=== PATIENT | male | born 1990 | race African-American/Black ===

== ENCOUNTER 2022-06-01 04:02 | Emergency (ER) | payer OTHER, SELFPAY ==
[2022-06-01 04:20] VITALS: BP 148/59; PULSE 72; RESP 16; TEMP 36.3; O2SAT 99; BMI 23.0
[2022-06-01 04:42] LABS: Strep A Nucleic Acid Positive (Negative)
[2022-06-01 04:57] LABS: COVID-19 Test Negative (Negative); IDNOW Serial# 16C4AD1C
--- NOTE | 2022-06-01 08:37 | PC.NURSE ---
call placed to pt and informed he has strep and needs antibiotics, told to return stanislav and we will get him right in, call placed at [id number]
== END 2022-06-01 10:37 | disposition left against medical advice (07) ==
PROVIDERS: Emergency Provider Emergency Medicine
DX: R07.0 Pain in throat (principal); R50.9 Fever, unspecified; Z20.822 Contact with and (suspected) exposure to COVID-19; Z79.899 Other long term (current) drug therapy
CPT/HCPCS: 87635; 87651; 99281; 99282